=== PATIENT | female | born 1955 | race Caucasian/White ===

== ENCOUNTER → 2017-02-17 | Outpatient (CLI) | payer BC ==
--- NOTE | 2017-02-19 07:15 | MM ---
Reason for exam: screening (asymptomatic). Last mammogram was performed 1 year and 2 months ago. History: Patient is postmenopausal and has history of breast cancer at age 47. Excisional biopsy of the left breast, 2002. Excisional biopsy of the right breast, 2002. Lumpectomy of the right breast. Took hormonal contraceptives for 6 years beginning at age 18. Took estrogen for 3 months beginning at age 47. Took tamoxifen for 4 years 7 months. Physical Findings: A clinical breast exam by your physician is recommended on an annual basis and results should be correlated with mammographic findings. MG 3D Screening Mammo W/Cad Bilateral CC and MLO view(s) were taken. Prior study comparison: December 07, 2015, bilateral MG screening mammo w CAD. August 03, 2014, bilateral MG diagnostic mammo w CAD [facility]. There are scattered fibroglandular densities. No significant changes when compared with prior studies. ASSESSMENT: Benign, BI-RAD 2 RECOMMENDATION: Follow-up diagnostic mammogram of both breasts in 1 year.
== END | disposition home or self-care (01) ==
LOC: RADMAMWWP 16:29
PROVIDERS: ATTEND Internal Medicine
DX: Z12.31 Encounter for screening mammogram for malignant neoplasm of breast (principal)
CPT/HCPCS: 77063; 77067

== ENCOUNTER → 2019-12-09 | Outpatient (CLI) | payer MEDICARE ==
--- NOTE | 2019-12-10 13:45 | MM ---
Reason for exam: screening (asymptomatic). Last mammogram was performed 1 year and 6 months ago. History: Patient is postmenopausal and has history of breast cancer at age 47. Excisional biopsy of the left breast, 2002. Excisional biopsy of the right breast, 2002. Lumpectomy of the right breast. Took hormonal contraceptives for 6 years beginning at age 18. Took estrogen for 3 months beginning at age 47. Took tamoxifen for 4 years 7 months. Physical Findings: A clinical breast exam by your physician is recommended on an annual basis and results should be correlated with mammographic findings. MG Screening Mammo w CAD Bilateral CC and MLO view(s) were taken. Prior study comparison: June 10, 2018, mammogram, performed at [facility]. February 17, 2017, bilateral MG 3d screening mammo w/cad. December 07, 2015, bilateral MG screening mammo w CAD. The breast tissue is heterogeneously dense. This may lower the sensitivity of mammography. Finding: There are typically benign round calcifications in the upper outer quadrant of the left breast. Asymmetric breast tissue right upper outer quadrant is stable. There is no discrete abnormality. ASSESSMENT: Benign, BI-RAD 2 RECOMMENDATION: Routine screening mammogram of both breasts in 1 year.
== END | disposition home or self-care (01) ==
LOC: RADMAMWWP 08:33
PROVIDERS: ATTEND Nurse Practitioner Women's Health
DX: Z12.31 Encounter for screening mammogram for malignant neoplasm of breast (principal); Z80.3 Family history of malignant neoplasm of breast
CPT/HCPCS: 77067

== ENCOUNTER 2021-01-05 08:49 | Day surgery (SDC) | payer MEDICARE ==
[2021-01-01 13:15] VITALS: BMI 26.6
[~2021-01-05 08:49] MED LIST: LACTATED RINGERS 1,000 ML IV SCH; LIDOCAINE 1% (10MG/ML) FOR IV START INTRADERMA PRN; Pre Op ABX Message 1 EACH MISC MISCELLANE ONE
[2021-01-05] MEDS ORDERED: ONDANSETRON 4 MG/2 ML VIAL ONE (09:17)
[2021-01-05] MEDS ORDERED: LACTATED RINGERS 1,000 ML IV ONE ×2 (09:18→11:35)
[2021-01-05] MEDS ORDERED: ONDANSETRON 4 MG/2 ML VIAL IVP ONE (09:34)
[2021-01-05] MEDS ORDERED: DEXAMETHASONE SOD PHOSPHATE 4 MG/ML 1 ML VIAL IVP ONE (09:34)
[2021-01-05] MEDS ORDERED: fentaNYL (PF) 50 MCG/ML 2 ML AMP IVP ONE (09:42)
[2021-01-05] MEDS ORDERED: MIDAZOLAM 2 MG/2 ML VIAL IVP ONE (09:43)
[2021-01-05] MEDS ORDERED: CLINDAMYCIN 600 MG in DEXTROSE 5% IN WATER 50 ML IVPB STA ×2 (10:06)
[2021-01-05] MEDS ORDERED: PHENYLEPHRINE-0.9% NACL SYG 1,000 MCG/10 ML SYRINGE ONE (10:12)
[2021-01-05] MEDS ORDERED: ePHEDrine 50 MG/ML 1 ML AMP ONE (10:12)
[2021-01-05] MEDS ORDERED: LIDOCAINE 1% INJ 10MG/ML (20 ML MDV) ONE (10:12)
[2021-01-05] MEDS ORDERED: PROPOFOL 10 MG/ML 20 ML VIAL IV ONE (10:12)
[2021-01-05] MEDS ORDERED: ROPIVACAINE 5 MG/ML 30 ML VIAL ONE (10:12)
[2021-01-05] MEDS ORDERED: fentaNYL (PF) 50 MCG/ML 2 ML AMP ONE (10:12)
[2021-01-05] MEDS ORDERED: SUCCINYLCHOLINE CHLORIDE 100 MG/5 ML SYR IV ONE (10:12)
[2021-01-05] MEDS ORDERED: MIDAZOLAM 2 MG/2 ML VIAL ONE (10:12)
[2021-01-05] MEDS ORDERED: ceFAZolin 1,000 MG in SODIUM CHLORIDE 0.9% 1,000 ML IRRIGATION ONE (10:40)
--- NOTE | 2021-01-05 12:00 | P.OP ---
Date of Procedure: 01/05/21 Preoperative Diagnosis: Hallux valgus right foot Postoperative Diagnosis: Same Procedure(s) Performed: Modified Lapidus bunionectomy right foot Implants: Lapiplasty plates and screws Anesthesia: EULOGIO Surgeon: Andrews Awad Estimated Blood Loss (ml): 3 Pathology: none sent Condition: stable Disposition: PACU Indications for Procedure: Painful recurrent bunion right foot Description of Procedure: Prior to the patient being brought to the operating room anesthesia administered a nerve block on the right lower extremity utilizing ultrasonic guidance and having the patient under mild sedation. Then the patient was brought into the operating room and placed on the table supine position. Timeout was taken to confirm correct patient identifiers, correct procedure, and correct site of surgery. When all staff in the room were in agreement with the timeout, the patient was induced and placed under general anesthesia. A well-padded tourniquet was placed on the right ankle and then the left foot was prepped and draped in the usual manner. The foot was exsanguinated with an Esmarch bandage and the tourniquet inflated to 250 mmHg. Attention was first directed over the medial aspect of the first metatarsal phalangeal joint, where a linear incision was made between the neurovascular structures. It was deepened down to the subcutaneous tissue careful to identify, avoid, and retract any neurovascular structures and cauterize any bleeding vessels. Dissection was continued down to the first metatarsal phalangeal joint capsule. 2 semi-elliptical converging incisions are made along the medial aspect of the first metatarsal phalangeal joint and then the interposing piece of capsule was removed. The capsule was reflected from its osseous attachments on the medial plantar aspects of the first metatarsal head. The sesamoid apparatus was distracted plantarly and then the lateral sesamoid collateral ligament was transected and a lateral capsulotomy performed. Attention was directed over the dorsal aspect of the foot where a 6 cm incision was made centered over the tarsometatarsal joint medial to the extensor hallucis longus tendon. The incision was deepened down to the saphenous tissue careful to identify, avoid, and retract any neurovascular structures and cauterize any bleeding vessels. Dissection was then continued down to the periosteum and capsule and the same area. An incision was made medial to the extensor hallucis longus tendon to these tissues. Subperiosteal dissection was performed to expose the first tarsometatarsal joint. An osteotome was inserted into the joint to free the soft tissue attachments. A wire was placed through the medial aspect of the base of the first metatarsal to act as a joystick for frontal plane correction of the deformity. A fulcrum/joint seeker was then placed into the first tarsometatarsal joint. A Small stab incision was made on the lateral side of second metatarsal and bluntly dissected along the second metatarsal. The intermetatarsal angle reduction clamp was then placed over the second metatarsal and then medially on the flare of the base of the first metatarsal. While simultaneously holding the frontal plane correction and position the re duction clamp was advanced to close the intermetatarsal angle. Fluoroscopic imaging was used to check the amount of correction. Once the frontal plane rotation as well as the transverse plane to 40 were fully corrected a guidepin was then placed through the reduction clamp to lock it in place. The cut guide was placed over the joint seeker and held in place with pins. Fluoroscopy was used to check the alignment to make sure there was enough bone resection. Once adequate a third pin was placed through the cut guide to lock it in place. A sagittal saw was then used to resect the articular surface of the base of first metatarsal and distal medial cuneiform. The locking pin for the cut guide was removed and then the cut guide was removed. Joint seeker was also removed at this time. The distraction device was placed over the pins and the joint opened to allow access for the cut portions of bone. The cut portions of bone were removed. And then the wound was explored for any remaining pieces of bone. Once fully clean that wound is irrigated thoroughly with antibiotic saline. Then a 2 mm drill bit was used to aggressively fenestrate the conjoining surfaces of the arthrodesis site. The pin through the angle reduction clamp was removed and the fulcrum reinserted at the lateral side of the base of the first metatarsal. Then the distractor was reversed and then was used to compressed the arthrodesis site while holding the great toe dorsiflexed. The compression was done until the arthrodesis site was fully compressed. Once fully compressed fluoroscopy was used to make sure that the correction was maintained at that there was indeed adequate bony contact at the arthrodesis site. Lateral view also show that there was no plantar angulation. Once that was satisfactory of threaded olive wire was placed from dorsal proximal to distal plantar for point of fixation. Then the medial plate was positioned over the arthrodesis site and under direct fluoroscopic visualization was adjusted until the placement was ideal then temporarily fixated. The 2 internal screws were placed first. Then the temporary fixation was removed and the most distal and proximal screws ins erted. Fluoroscopic imaging showed that the plate was properly positioned. Then the distractor and guidepins were removed and then the dorsal plate was positioned under fluoroscopy and adjusted into ideal alignment and then temporarily fixated. The 200 screws were then placed first and then the temporary fixation removed and the most distal and proximal screws inserted through the plate. The olive wire was then removed and fluoroscopic imaging was used to check the position of the plates and the overall correction of the deformity. Intermetatarsal angle was corrected, the sesamoids were properly aligned and there was good compression maintain at the arthrodesis site. All wounds were then thoroughly irrigated with antibiotic saline. The first metatarsal phalangeal joint capsule was closed with 0 Vicryl while holding the great toe to correct position. The deep tissue on the dorsal incision was also closed with 0 Vicryl. All incisions were closed with 4-0 Monocryl subcutaneously. The medial dorsal incisions were closed with 4-0 Stratafix in a running subcuticular manner. Dermal glue was applied to all incisions. Steri- Strips are placed across all incisions. An Arthrex jumpstart dressing was placed over all incisions. Then a bulky dry dressing applied to the left foot. Tourniquet was released and capillary refill return to all digits on the right foot. Then the patient was placed in a well-padded, well molded plaster posterior mold/sugar tong splint. Ankle was held in neutral position until the splint was dried. Then anesthesia was reversed and the patient was taken recovery with vital signs stable.
[2021-01-05 12:18] VITALS: TEMP 96.8
[2021-01-05 13:30] VITALS: BP 117/77; PULSE 80; RESP 16
--- NOTE | 2021-01-05 15:52 | P.ANPRN ---
Procedure Note - Anesthesia - Nerve Block Performed Right Popliteal Single Time Out Performed: Yes (941) Date of Procedure: 01/05/21 Procedure Start Time: 09:42 Procedure Stop Time: 09:47 Location of Patient: PreOp Indication: Acute Post-Operative Pain, Requested by Surgeon Specifically requested for management of pain by DrLeigh Ann: Andrews Awad Sedation Type: Sedate with meaningful contact maintained Preparation: Sterile Prep Position: Supine Catheter: None Needle Types: Pajunk Needle Gauge: 21 Ultrasound used to visualize needle placement: Yes Ultrasound used to observe medication spread: Yes Injectate: 0.5% Ropivacaine (see comment for volume) (15cc + 5cc nacl pf) Blood Aspirated: No Pain Paresthesia on Injection Noted: No Resistance on Injection: Normal Image Stored and Saved: Yes Events: Uneventful and Well Tolerated Right Adductor Canal Single Time Out Performed: Yes (941) Date of Procedure: 01/05/21 Procedure Start Time: 09:48 Procedure Stop Time: 09:52 Location of Patient: PreOp Indication: Acute Post-Operative Pain, Requested by Surgeon Specifically requested for management of pain by Dr.: Andrews Awad Sedation Type: Sedate with meaningful contact maintained Preparation: Sterile Prep Position: Supine Catheter: None Needle Types: Pajunk Needle Gauge: 21 Ultrasound used to visualize needle placement: Yes Ultrasound used to observe medication spread: Yes Injectate: 0.5% Ropivacaine (see comment for volume) (15cc + 5cc nacl pf) Blood Aspirated: No Pain Paresthesia on Injection Noted: No Resistance on Injection: Normal Image Stored and Saved: Yes Events: Uneventful and Well Tolerated
== END 2021-01-05 13:50 | disposition home or self-care (01) ==
LOC: OR 08:49
PROVIDERS: ATTEND Podiatrist
DX: M20.11 Hallux valgus (acquired), right foot (principal); I10 Essential (primary) hypertension; K21.9 Gastro-esophageal reflux disease without esophagitis; G43.909 Migraine, unspecified, not intractable, without status migrainosus; Z85.3 Personal history of malignant neoplasm of breast; Z97.3 Presence of spectacles and contact lenses; Z98.890 Other specified postprocedural states; Z98.1 Arthrodesis status; Z83.3 Family history of diabetes mellitus; Z82.49 Family history of ischemic heart disease and other diseases of the circulatory system; Z87.891 Personal history of nicotine dependence; Z79.1 Long term (current) use of non-steroidal anti-inflammatories (NSAID); Z79.899 Other long term (current) drug therapy; Z88.1 Allergy status to other antibiotic agents
CPT/HCPCS: 64447; 64445; 76942; 28297; C1713; J2250; J1100; J2405; J2001; J3010; J2795; J2370; J0330; J2704; 64450

== ENCOUNTER → 2021-02-09 | Outpatient (CLI) | payer MEDICARE ==
--- NOTE | 2021-02-12 10:03 | MM ---
Reason for exam: screening (asymptomatic). Last mammogram was performed 1 year and 2 months ago. History: Patient is postmenopausal and has history of breast cancer at age 47. Excisional biopsy of the left breast, 2002. Excisional biopsy of the right breast, 2002. Lumpectomy of the right breast. Took hormonal contraceptives for 6 years beginning at age 18. Took estrogen for 3 months beginning at age 47. Took tamoxifen for 4 years 7 months. Physical Findings: A clinical breast exam by your physician is recommended on an annual basis and results should be correlated with mammographic findings. MG 3D Screening Mammo W/Cad Bilateral CC and MLO view(s) were taken. Prior study comparison: December 09, 2019, bilateral MG screening mammo w CAD. June 10, 2018, mammogram, performed at [facility]. There are scattered fibroglandular densities. There are benign appearing vascular calcifications bilaterally. There is chronic nodularity in the left breast. There is no discrete abnormality. ASSESSMENT: Benign, BI-RAD 2 RECOMMENDATION: Routine screening mammogram of both breasts in 1 year.
== END | disposition home or self-care (01) ==
LOC: RADMAMWWP 10:43
PROVIDERS: ATTEND Family Medicine
DX: Z12.31 Encounter for screening mammogram for malignant neoplasm of breast (principal); Z78.0 Asymptomatic menopausal state
CPT/HCPCS: 77063; 77067

== ENCOUNTER → 2022-03-12 | Outpatient (CLI) | payer MEDICARE ==
--- NOTE | 2022-03-13 08:26 | MM ---
Reason for Exam: Screening (asymptomatic). Last mammogram was performed 1 year(s) and 1 month(s) ago. Patient History: Menarche at age 10. First Full-Term at age 16. Postmenopausal. Breast cancer, age 47. Estrogen for 3 months from age 47 until age 47. Hormonal Contraceptives, starting at age 18 for 6 years. Tamoxifen for 4 years, 7 months, until age 53. Lumpectomy on the Right side. 2002, Excisional Biopsy on the Right side. 2002, Excisional Biopsy on the Left side. Prior Study Comparison: 04/16/1993 Screening Mammogram, Unknown. 06/10/2018 Screening Mammogram, [facility]. 12/09/2019 Bilateral Screening Mammogram, [facility]. 02/09/2021 Bilateral Screening Mammogram, [facility]. Tissue Density: The breast tissue is heterogeneously dense. This may lower the sensitivity of mammography. Findings: Analyzed By CAD. There is no suspicious group of microcalcifications or new suspicious mass in either breast. Distortion right breast from prior surgical procedure. Overall Assessment: Benign, BI-RAD 2 Management: Screening Mammogram of both breasts in 1 year. A clinical breast exam by your physician is recommended on an annual basis and results should be correlated with mammographic findings. Electronically signed and approved by: Justen Waters M.D. Radiologis
== END | disposition home or self-care (01) ==
LOC: RADMAMWWP 09:32
PROVIDERS: ATTEND Family Medicine
DX: Z12.31 Encounter for screening mammogram for malignant neoplasm of breast (principal); Z78.0 Asymptomatic menopausal state
CPT/HCPCS: 77063; 77067

== ENCOUNTER → 2022-08-15 | Outpatient (CLI) | payer MEDICARE ==
--- NOTE | 2022-08-15 11:54 | MR ---
EXAMINATION TYPE: MR lumbar spine wo con DATE OF EXAM: 08/15/2022 COMPARISON: None HISTORY: Pain low back into left side TECHNIQUE: Multiplanar, multisequence images of the lumbar spine were acquired without IV contrast. FINDINGS: Lumbar segments are intact. Grade 1 anterolisthesis of L4-L5 without evidence for pars defects. No p araspinal masses are identified. Conus medullaris has a normal appearance. Multilevel disc desiccati on. Disc space narrowing most pronounced at L5-S1. Sacral Tarlov cyst. Type I Modic changes involving the inferior endplate of L5 and superior endplate of S1. T12-L1: No evidence for disc herniation. Bilateral facet arthropathy and ligamentum flavum buckling. No significant central canal stenosis. Bilateral neural foramina are patent. L1-L2: No evidence for disc herniation. Bilateral facet arthropathy and ligamentum flavum buckling. N o significant central canal stenosis. Bilateral neural foramina are patent. L2-L3: No evidence for disc herniation. Bilateral facet arthropathy and ligamentum flavum buckling. N o significant central canal stenosis. Bilateral neural foramina are patent. L3-L4: Broad-based disc bulge without significant central canal stenosis. Bilateral facet arthropathy and ligamentum little buckling. The neural foramina are patent bilaterally. L4-L5: Grade 1 anterolisthesis with uncovering of the disc. Disc space narrowing. Central disc protru jefferson mild central canal stenosis. Bilateral facet arthropathy with ligamentum flavum buckling. The le ft neural foramen is patent. Mild right neuroforaminal stenosis L5-S1: Broad-based disc bulge without evidence of significant central canal stenosis. Bilateral facet arthropathy with mild left neural foraminal stenosis. The right neural foramen is patent. Partial visualization of large right superior renal pole T2 hyperintense likely cyst measuring at mic[address]al st 6.7 cm. This can be further evaluated with renal ultrasound as clinically indicated. IMPRESSION: 1. Grade 1 anterolisthesis of L4 on L5 with uncovering the disc. There is a central disc protrusion a t this level with bilateral facet arthropathy and ligamentum flavum buckling contributing to mild iris tral canal stenosis. Mild right neural foraminal stenosis at this level. 2. Multilevel degenerative disc disease and facet arthropathy as described above.
== END | disposition home or self-care (01) ==
LOC: RADMRIMAIN 10:17
PROVIDERS: ATTEND Physical Medicine & Rehabilitation
DX: M51.16 Intervertebral disc disorders with radiculopathy, lumbar region (principal); M43.16 Spondylolisthesis, lumbar region; M41.26 Other idiopathic scoliosis, lumbar region; M48.061 Spinal stenosis, lumbar region without neurogenic claudication; M47.26 Other spondylosis with radiculopathy, lumbar region; M16.0 Bilateral primary osteoarthritis of hip; R20.2 Paresthesia of skin; Z85.3 Personal history of malignant neoplasm of breast
CPT/HCPCS: 72148

== ENCOUNTER → 2022-10-16 | Outpatient (CLI) | payer MEDICARE ==
--- NOTE | 2022-10-16 15:56 | US ---
EXAMINATION TYPE: US renals and bladder DATE OF EXAM: 10/16/2022 COMPARISON: MRI 2022 CLINICAL INDICATION: Female, 67 years old with history of N28.1 CYST OF KIDNEY, ACQUIRED; Right renal cyst seen on recent MRI EXAM MEASUREMENTS: Right Kidney: 10.1 x 5.5 x 4.5 cm Left Kidney: 9.9 x 5.2 x 4.7 cm Right Kidney: 6.5 x 5.7 x 5.9cm complex cyst superior pole Left Kidney: wnl Bladder: wnl Bilateral Jets seen: no There is no evidence for hydronephrosis at this point in time. No nephrolithiasis is seen. No gerry s are identified. The urinary bladder is anechoic. IMPRESSION: 1. Complex cyst with internal echoes superior pole right kidney. Follow-up recommended.
== END | disposition home or self-care (01) ==
LOC: RADUSWWP 15:18
PROVIDERS: ATTEND Family Medicine
DX: N28.1 Cyst of kidney, acquired (principal)
CPT/HCPCS: 76770

== ENCOUNTER → 2023-01-31 | Outpatient (CLI) | payer MEDICARE ==
[2023-01-31 16:17] LABS: BUN/Creat Ratio 17.58 Ratio (12.00-20.00); Blood Urea Nitrogen 21.1 mg/dL (9.0-27.0); Calcium 9.7 mg/dL (8.7-10.3); Carbon Dioxide 20.7 mmol/L (21.6-31.8); Chloride 109 mmol/L (96-109); Glucose 94 mg/dL (70-110); Sodium 142 mmol/L (135-145)
== END | disposition home or self-care (01) ==
LOC: LABWHC1 08:04
PROVIDERS: ATTEND Internal Medicine
DX: N18.31 Chronic kidney disease, stage 3a (principal)
CPT/HCPCS: 36415; 80048

== ENCOUNTER → 2023-03-10 | Outpatient (CLI) | payer MEDICARE ==
[2023-03-10 15:12] LABS: African American GFR (CKD) 64 (>60 ml/min/1.73 sqM); Blood Urea Nitrogen 23 mg/dL (7-17); Non-African American GFR(CKD) 55 (>60 ml/min/1.73 sqM)
--- NOTE | 2023-03-10 17:06 | CT ---
EXAMINATION TYPE: CT abdomen pelvis wo/w con DATE OF EXAM: 03/10/2023 COMPARISON: Ultrasound 10/16/2022 HISTORY: Right renal cyst found on prior MRI CT DLP: 1267.3 mGycm CONTRAST: CT scan of the abdomen and pelvis is performed with Oral Contrast and without and with IV Contrast, p atient injected with 80 cc mL of Isovue 300. FINDINGS: LUNG BASES-: No visible nodule. No infiltrate. Small hiatal hernia seen. LIVER/GB: Cholecystectomy clips. No space occupying hepatic lesion. Biliary tree is of normal caliber . PANCREAS: No inflammation. No distinct mass. SPLEEN: No splenic enlargement. No lesion seen. ADRENALS: No nodule. No thickening. KIDNEYS/BLADDER: No hydronephrosis. No nephrolithiasis. Simple exophytic cyst upper pole right kidn ey measuring 7.2 cm. The remainder of the kidneys are free of solid or cystic mass. Urinary bladder g rossly unremarkable. BOWEL: Normal appendix. Normal bowel caliber. No inflammation. GENITAL ORGANS: No gross abnormality. LYMPH NODES: No greater than 1cm abdominal or pelvic lymph nodes are appreciated. AORTA: No significant abnormality. OSSEOUS STRUCTURES: No significant abnormality is seen. OTHER: No significant additional abnormality is seen. IMPRESSION: 1. Simple cyst upper pole right kidney.
== END | disposition home or self-care (01) ==
LOC: RADCTMAIN 14:32
PROVIDERS: ATTEND Student in an Organized Health Care Education/Training Program
DX: N28.1 Cyst of kidney, acquired (principal)
CPT/HCPCS: 82565; 84520; 74178; 36415; Q9967

== ENCOUNTER → 2023-03-25 | Outpatient (CLI) | payer MEDICARE ==
--- NOTE | 2023-03-25 16:03 | BD ---
EXAMINATION TYPE: Axial Bone Density DATE OF EXAM: 03/25/2023 CLINICAL HISTORY: 67 years old Female. ICD-10 CODE: Z78.0 ASYMPTOMATIC MENOPAUSAL STATE Height: 64 Weight: 165 FRAX RISK QUESTIONS: Family History (Parent hip fracture): no History of Fracture in Adulthood: no Secondary Osteoporosis: no RISK FACTORS HISTORY OF: Surgery to Spine/Hip(right/left)/Wrist (right/left): no MEDICATIONS: Thyroid Medications: no Osteoporosis Medications: no EXAM MEASUREMENTS: Bone mineral densitometry was performed using the [employer]. Bone mineral density as measured about the Lumbar spine is: ----- L1-L4(G/cm2): 1.072 T Score Values are as follows: ----- L1: -1.8 ----- L2: -1.2 ----- L3: -0.6 ----- L4: -0.4 ----- L1-L4: -0.9 Z Score Values are as follows: ----- L1: -0.3 ----- L2: 0.3 ----- L3: 0.9 ----- L4: 1.1 ----- L1-L4: 0.6 Bone mineral density has: Decreased -0.9% since study of: 01-23-2009 Bone mineral density about the R hip (g/cm2): 0.915 Bone mineral density about the L hip (g/cm2): 0.940 T Score values are as follows: -----R Neck: -0.5 -----L Neck: -0.1 -----R Total: -0.7 -----L Total: -0.5 Z Score values are as follows: -----R Neck: 1.1 -----L Neck: 1.5 -----R Total: 0.6 -----L Total: 0.8 Bone mineral density has: Decreased -3.4% since study of: 01-23-2009 FRAX%s: The graph provided illustrates a 7.8% chance for a major osteoporotic fx and a 0.6% chance fo r the hips probability for fx in 10 years time. IMPRESSION: Normal (Values between +1 and -1 indicate normal bone mass). Note that measurements are bordering on osteopenia in the lumbar spine. Consider repeating this study in 5 years or sooner if there is some new clinical indication. NOTE: T-SCORE=SD OF THE YOUNG ADULT MEAN.
--- NOTE | 2023-03-26 21:44 | MM ---
Reason for Exam: Screening (asymptomatic). Last mammogram was performed 1 year(s) and 1 month(s) ago. Patient History: Menarche at age 10. First Full-Term at age 16. Postmenopausal. Breast cancer, right, age 47. Estrogen for 3 months from age 47 until age 47. Hormonal Contraceptives, starting at age 18 for 6 years. Tamoxifen for 4 years, 7 months, until age 53. Lumpectomy on the Right side. 2002, Excisional Biopsy on the Right side. 2002, Excisional Biopsy on the Left side. Prior Study Comparison: 12/09/2019 Bilateral Screening Mammogram, [facility]. 02/09/2021 Bilateral Screening Mammogram, [facility]. 03/12/2022 Bilateral MG 3D screening mammo w/cad, [facility]. Tissue Density: There are scattered fibroglandular densities. Findings: Analyzed By CAD. Redemonstrated postsurgical changes right breast. There is no suspicious group of microcalcifications or new suspicious mass in either breast. Overall Assessment: Benign, BI-RAD 2 Management: Screening Mammogram of both breasts in 1 year. . Patient should continue monthly self-breast exams. A clinical breast exam by your physician is recommended on an annual basis. This exam should not preclude additional follow-up of suspicious palpable abnormalities. Note on Mirella scores and lifetime risk: 1. A Mirella score greater than 3% is considered moderate risk. If this is the case, consider specialist referral to assess eligibility for a risk reducing agent. 2. If overall lifetime risk for the development of breast cancer is 20% or higher, the patient may qualify for future screening with alternating mammogram and breast MRI. Electronically signed and approved by: Nate Valdez M.D. Radiologist
== END | disposition home or self-care (01) ==
LOC: RADMAMWWP 09:58
PROVIDERS: ATTEND Family Medicine
DX: Z12.31 Encounter for screening mammogram for malignant neoplasm of breast (principal); M85.88 Other specified disorders of bone density and structure, other site; Z78.0 Asymptomatic menopausal state
CPT/HCPCS: 77063; 77067; 77080

== ENCOUNTER → 2023-05-13 | Outpatient (CLI) | payer MEDICARE ==
[2023-05-13 15:58] LABS: HCT 44.3 % (37.2-46.3); MCH 28.9 pg (27.0-32.0); MCHC 31.6 g/dL (32.0-37.0); MCV 91.3 FL (80.0-97.0); Mean Platelet Volume 9.7 FL (9.5-12.2); NRBC Per 100 WBC 0 X 10*3/uL (0.00-0.01); Platelet Count 313 X 10*3/uL (140-440); RBC 4.85 X 10*6/uL (4.10-5.20); RDW 13.9 % (11.5-14.5); WBC 6.86 X 10*3/uL (4.50-10.00)
[2023-05-13 16:48] LABS: % Iron Saturation 19.27 (12.00-45.00); ALT 34 U/L (8-44); AST 27 U/L (13-35); Albumin 4.4 g/dL (3.8-4.9); Albumin/Globulin Ratio 1.63 Ratio (1.60-3.17); Alkaline Phosphatase 123 U/L (41-126); BUN/Creat Ratio 25.55 Ratio (12.00-20.00); Blood Urea Nitrogen 28.1 mg/dL (9.0-27.0); Calcium 10.1 mg/dL (8.7-10.3); Carbon Dioxide 22.6 mmol/L (21.6-31.8); Chloride 106 mmol/L (96-109); Ferritin 52.8 ng/mL (10.0-291.0); Globulin 2.7 g/dL (1.6-3.3); Glucose 86 mg/dL (70-110); Iron 79 UG/DL (50-170); Phosphorus 3.8 mg/dL (2.4-5.1); Sodium 142 mmol/L (135-145); Total Bilirubin <0.2 mg/dL (0.3-1.2); Total Iron Binding Capacity 410 UG/DL (228-460); Total Protein 7.1 g/dL (6.2-8.2); Uric Acid 6.9 mg/dL (2.9-7.7)
[2023-05-13 20:11] LABS: Appearance,Urine Clear (Clear); Bilirubin,Urine Negative (Negative); Blood,Urine Negative (Negative); Color,Urine Yellow (Yellow); Ketones,Urine Negative (Negative); Nitrite,Urine Negative (Negative); Specific Gravity,Urine 1.028 (1.001-1.030); Urobilinogen,Urine 0.2 E.U./DL
[2023-05-13 21:01] LABS: Bacteria,Urine None Seen (None Seen); Calcium Oxalate Crystals,Urine Present (None Seen)
== END | disposition home or self-care (01) ==
LOC: LABWHC1 08:47
PROVIDERS: ATTEND Internal Medicine
DX: N18.31 Chronic kidney disease, stage 3a (principal); D63.1 Anemia in chronic kidney disease; N39.0 Urinary tract infection, site not specified; N25.81 Secondary hyperparathyroidism of renal origin; E55.9 Vitamin D deficiency, unspecified; M10.9 Gout, unspecified
CPT/HCPCS: 36415; 80053; 81001; 82306; 82728; 83540; 83550; 83735; 83883; 83970; 84100; 84166; 84550; 85027; 86334

== ENCOUNTER → 2023-06-23 | Outpatient (CLI) | payer MEDICARE ==
[2023-06-23 11:43] LABS: INR 0.9 (<1.2); Partial Thromboplastin Time 24.4 sec (22.0-30.0); Prothrombin Time 10.1 sec (10.0-12.5)
[2023-06-23 14:46] LABS: Basophils # (A) 0.05 X 10*3/uL (0.00-0.10); Basophils % (A) 0.7 %; Eosinophils # (A) 0.25 X 10*3/uL (0.04-0.35); Eosinophils % (A) 3.5 %; HGB 14.2 g/dL (12.0-15.0); Lymphocytes # (A) 1.88 X 10*3/uL (0.90-5.00); Lymphocytes % (A) 26.6 %; MCH 29.3 pg (27.0-32.0); MCHC 32.3 g/dL (32.0-37.0); MCV 90.9 FL (80.0-97.0); Mean Platelet Volume 10.3 FL (9.5-12.2); Monocytes % (A) 7.1 %; NRBC Per 100 WBC 0 X 10*3/uL (0.00-0.01); Neutrophils # (A) 4.38 X 10*3/uL (1.80-7.70); Neutrophils % (A) 61.8 %; Platelet Count 316 X 10*3/uL (140-440); RBC 4.84 X 10*6/uL (4.10-5.20); RDW 13.2 % (11.5-14.5); WBC 7.08 X 10*3/uL (4.50-10.00)
[2023-06-23 15:00] LABS: ALT 28 U/L (8-44); AST 25 U/L (13-35); Albumin 4.6 g/dL (3.8-4.9); Albumin/Globulin Ratio 1.77 Ratio (1.60-3.17); Alkaline Phosphatase 106 U/L (41-126); BUN/Creat Ratio 20.27 Ratio (12.00-20.00); Blood Urea Nitrogen 22.3 mg/dL (9.0-27.0); Calcium 9.7 mg/dL (8.7-10.3); Chloride 108 mmol/L (96-109); Globulin 2.6 g/dL (1.6-3.3); Glucose 93 mg/dL (70-110); Potassium 3.7 mmol/L (3.5-5.5); Sodium 142 mmol/L (135-145); Total Bilirubin 0.2 mg/dL (0.3-1.2); Total Protein 7.2 g/dL (6.2-8.2)
== END | disposition home or self-care (01) ==
LOC: LABPAT 10:06
PROVIDERS: ATTEND Orthopaedic Surgery
DX: Z01.812 Encounter for preprocedural laboratory examination (principal); E11.9 Type 2 diabetes mellitus without complications; M16.11 Unilateral primary osteoarthritis, right hip; Z22.322 Carrier or suspected carrier of Methicillin resistant Staphylococcus aureus
CPT/HCPCS: 36415; 80053; 83036; 85025; 85610; 85730; 86850; 86900; 86901; 87070

== ENCOUNTER 2023-07-02 11:20 | Day surgery (SDC) | payer MEDICARE ==
[~2023-07-02 11:20] MED LIST changes: +HYDROmorphone 0.5 MG/0.5 ML SYRINGE IVP PRN; -LACTATED RINGERS 1,000 ML IV SCH; -LIDOCAINE 1% (10MG/ML) FOR IV START INTRADERMA PRN; -Pre Op ABX Message 1 EACH MISC MISCELLANE ONE; +TRANEXAMIC 1,000 MG/100ML-NACL 1,000 MG in SALINE 1 100ML.BAG IV PRN; +TRANEXAMIC 1,000 MG/100ML-NACL 1,000 MG in SALINE 1 100ML.BAG IVPB PRN
[2023-07-02] MEDS: oxyCODONE ER 10 MG TAB.ER.12H PO PRN (12:05)
[2023-07-02] MEDS: DOCUSATE 100 MG CAP PO PRN (12:05)
[2023-07-02] MEDS: LIDOCAINE 1% (10MG/ML) FOR IV START INTRADERMA PRN (12:10)
[2023-07-02] MEDS: LACTATED RINGERS 1,000 ML IV SCH ×3 (12:10→19:51)
[2023-07-02] MEDS: MIDAZOLAM 2 MG/2 ML VIAL IVP ONE (12:20)
[2023-07-02] MEDS: DEXAMETHASONE SOD PHOSPHATE 10 MG/ML 1 ML VIAL IV PRN (12:25)
[2023-07-02] MEDS: FAMOTIDINE 20 MG/2 ML VIAL IVP PRN (12:25)
[2023-07-02] MEDS: KETOROLAC 15 MG/ML 1 ML VIAL IVP PRN (12:25)
[2023-07-02] MEDS: ONDANSETRON 4 MG/2 ML VIAL IVP PRN (12:25)
--- NOTE | 2023-07-02 12:36 | P.ANPRN ---
Procedure Note - Anesthesia - Nerve Block Performed Right Eder Single Time Out Performed: Yes Date of Procedure: 07/02/23 Procedure Start Time: 12:10 Procedure Stop Time: 12:15 Location of Patient: PreOp Indication: Acute Post-Operative Pain, Analgesia, Requested by Surgeon Sedation Type: Sedate with meaningful contact maintained Preparation: Sterile Prep Position: Supine Catheter: None Needle Types: Pajunk Needle Gauge: 21 Ultrasound used to visualize needle placement: Yes Ultrasound used to observe medication spread: Yes Injectate: 0.5% Ropivacaine (see comment for volume) (Ropiv 20 ml + decadron 4mg) Blood Aspirated: No Pain Paresthesia on Injection Noted: No Resistance on Injection: Normal Image Stored and Saved: Yes Events: Uneventful and Well Tolerated
[2023-07-02] MEDS: ACETAMINOPHEN TAB 500 MG TAB PO PRN (12:42)
[2023-07-02] MEDS ORDERED: SUCCINYLCHOLINE CHLORIDE 200 MG/10 ML VIAL IV ONE (13:43)
[2023-07-02] MEDS ORDERED: LIDOCAINE 1% INJ 10MG/ML (20 ML MDV) ONE (13:43)
[2023-07-02] MEDS ORDERED: PROPOFOL 10 MG/ML 20 ML VIAL IV ONE (13:43)
[2023-07-02] MEDS ORDERED: PHENYLEPHRINE-0.9% NACL SYG 1,000 MCG/10 ML SYRINGE ONE (13:43)
[2023-07-02] MEDS ORDERED: KETAMINE HCL IN 0.9 % NACL 50 MG/5 ML SYRINGE ONE (13:43)
[2023-07-02] MEDS ORDERED: HYDROmorphone (PF) 1 MG/ML ONE (13:43)
[2023-07-02] MEDS ORDERED: ROPIVACAINE 5 MG/ML 30 ML VIAL ONE (13:43)
[2023-07-02] MEDS ORDERED: TRANEXAMIC 1,000 MG/100ML-NACL PREMIX BAG ONE (13:43)
[2023-07-02] MEDS ORDERED: GLYCOPYRROLATE 0.2 MG/ML 2 ML VIAL ONE (13:43)
[2023-07-02] MEDS ORDERED: DEXAMETHASONE SOD PHOSPHATE 4 MG/ML 1 ML VIAL ONE (13:43)
[2023-07-02] MEDS ORDERED: fentaNYL (PF) 50 MCG/ML 2 ML AMP ONE (13:43)
[2023-07-02] MEDS ORDERED: ROCURONIUM 10 MG/ML (5 ML VIAL) IV ONE (13:43)
[2023-07-02] MEDS ORDERED: NEOSTIGMINE 1 MG/ML 10 ML VIAL ONE (13:43)
[2023-07-02] MEDS: ROPIVACAINE/EPI/CLONIDINE/KET 50 ML SYRINGE MISCELLANE PRN (14:41)
--- NOTE | 2023-07-02 15:52 | FL ---
EXAMINATION TYPE: FL guidance operating room, XR Hip Limited RT Intraoperative/procedural fluoroscopi c services were provided. Total fluoroscopy time is 47 seconds with a total of 7 submitted images to PACS. Please see the operative/procedural note for further details. DAP: 2.0896 Gycm2
[2023-07-02] MEDS ORDERED: HYDROcodone/APAP 5-325MG 1 EACH TAB PO PRN (15:55)
[2023-07-02] MEDS ORDERED: ONDANSETRON 4 MG/2 ML VIAL IVP PRN (15:55)
[2023-07-02] MEDS ORDERED: ACETAMINOPHEN TAB 325 MG TAB PO PRN (15:55)
[2023-07-02] MEDS ORDERED: HYDROmorphone 0.5 MG/0.5 ML SYRINGE IVP PRN ×3 (15:55)
[2023-07-02] MEDS ORDERED: traMADol 50 MG TAB PO PRN (15:55)
[2023-07-02] MEDS ORDERED: MAGNESIUM HYDROXIDE 2,400 MG/30 ML CUP PO PRN (15:55)
[2023-07-02] MEDS ORDERED: NALOXONE 0.4 MG/ML 1 ML VIAL IV PRN (15:55)
--- NOTE | 2023-07-02 16:02 | P.OP ---
Date of Procedure: 07/02/23 Preoperative Diagnosis: severe right hip osteoarthritis Postoperative Diagnosis: same Procedure(s) Performed: right direct anterior total hip arthroplasty Implants: 1. [place] Trident II Acetabular Cup, Size #50 2. Rolanda Insignia Size #4 Femoral Stem, High Offset 3. Biolox delta femoral head, 36 mm, -5 neck Anesthesia: jaycee KRISHNAN Surgeon: Andrei Mauricio Utility Operator #1: Av Shah Estimated Blood Loss (ml): 200 IV fluids (ml): 1,000 Pathology: none sent Condition: stable Disposition: PACU Indications for Procedure: I had a long discussion with the patient in the office on the potential risks and complications of an elective total hip replacement through a direct anterior approach. Risks discussed include, but are certainly not limited to, risks from anesthesia, superficial infection requiring local wound care or antibiotics, deep rosalia-prosthetic joint infection and the treatment required to eradicate infection, intraoperative fracture, postoperative periprosthetic fracture, damage to local blood vessels or nerves particularly the lateral femoral cutaneous nerve, delayed wound healing requiring local wound care or possibly surgical debridement, hip dislocation, leg length discrepancy, soft tissue irritation around the total hip implant such as iliopsoas tendinitis or trochanteric bursitis, wear and osteolysis from the implants, squeaking or audible noises, groin pain, thigh pain, heterotopic ossification, stiffness, aseptic loosening of the implants, dissatisfaction with surgical outcome, need for revision surgery, DVT, PE, swelling of the operative extremity, acute coronary event, stroke, failure to thrive, and possibly loss of life or limb. The patient understands that while these are the most common complications after an elective hip replacement there are certainly other less common complications possible. They were given ample time to ask questions regarding the potential complications of a hip replacement. Following our discussion the patient pro vided their verbal and written consent to go forward with an elective total hip replacement. Operative Findings: severe right hip osteoarthritis Description of Procedure: The patient was identified in the preoperative holding area and the correct hip was marked with my initials. I reviewed the procedure and consent with the patient. All of their questions were answered. The patient was then brought back into the operating room by anesthesia. While on the [facility] anesthesia was administered by the anesthesia team. Preoperative antibiotics and tranexamic acid were also given. After the patient was under anesthesia I examined their ankles to determine their preoperative leg length discrepancy. The skin over the anterior aspect of the hip was shaved to remove hair over the site of planned incision. Both feet and ankles were padded with webril and boots for the [place] were applied. The patient was then carefully transferred onto the [place] table. A perineal post was immediately placed. The arms were placed on arm holders and were well-padded. Both boots were secured to the spars on the [place] table. The patient was positioned so that the pelvis was centered over the post. Nonsterile drapes were applied. A timeout was performed identifying the correct patient, operative extremity, and procedure. At this point fluoroscopy was brought in to take preoperative images of the pelvis and operative hip. Using the standing AP pelvis from the office as a template, a comparable image was obtained with fluoroscopy. A metallic bar was used to create a bi-ischial line for use as a reference to leg length adjustments during the procedure. Global offset was also measured on both the operative and nonoperative leg. Fluoroscopy was then brought out and a pre-scrub using a chlorhexidine scrub brush was performed. The operative limb was then prepped and draped in the standard sterile fashion. An anterior longitudinal incision was made lateral and distal to the ASIS. The skin and subcutaneous tissues were incised sharply. The underlying tensor fascia was identified and incised in its midportion. The fascia was dissected free from the underlying muscle and the muscle belly was retracted. A blunt tipped cobra retractor was placed over the superior neck under the muscle fibers of the gluteus minimus. The deep enveloping fascia of the tensor was incised. The anterior leash of vessels were then identified and cauterized. The fascia between the rectus and the capsule was then incised and the pre-capsular fat was excised. A second Cobra was placed inferior to the neck. The interval between the rectus and iliocapsularis and the hip capsule was developed and a retractor was placed carefully over the anterior rim of the acetabulum. A T-shaped anterior capsulotomy was performed. The superior capsular leaflet was left in place in the inferior capsular flap was excised. The Cobra retractors were placed intracapsularly. We then made a femoral neck osteotomy according to preoperative and intraoperative templating and confirmed the level of the osteotomy using fluoroscopic imaging. The femoral head was removed, passed off to the back table, and sized. The superior capsular flap was excised. Retractors were placed circumferentially exposing the acetabulum. We then circumferentially debrided the acetabulum free of labrum and osteophytes. The pulvinar was removed to fully visualize the cotyloid fossa. We then sequentially reamed to achieve peripheral fit and excellent bleeding subchondral bone. The socket was thoroughly irrigated. The acetabular component was impacted into the appropriate position using fluoroscopy to guide version, inclination, and depth of insertion taking care to have a comparable image of the AP pelvis to the standing image taken in the office. An excellent press-fit was achieved and final position was confirmed using fluoroscopy. The press fit was augmented with bony cancellus dome screws. The liner was then impacted into the socket. Attention was then turned to the femur. The remnant dorsal lateral capsule was excised. The short external rotators were visible and protected. A bone hook was used to confirm appropriate translation of the trochanter away from the acetabulum. The leg was then extended and adducted and the bone hook was used to elevate the femur for broaching. A box osteotome and blunt tipped canal sound was then utilized to gain access to the femoral canal. We then sequentially broached the femur in appropriate anteversion until excellent torsional stability was achieved. The neck cut was brought flush to the trial broach with a calcar planar. A trial neck and head were then placed onto the broach and the hip was atraumatically reduced under direct visualization. External rotation to 90 was performed to assess stability. Fluoroscopy was brought in. An AP and lateral fluoroscopic image of the proximal femur was obta ined to assess position and fill of the trial broach. An AP of the pelvis was then obtained and matched to the preoperative image taken. A bi-ischial bar was then placed and measurements were taken to assess changes in length and offset. The hip was then carefully dislocated, the proximal femur was exposed, and the trial implants were removed. The wound and proximal femur was thoroughly irrigated using sterile saline and pulsatile lavage. The final femoral implant was dispensed and gently tapped into place generating an excellent press-fit. The trunnion was cleansed and the final head was tapped into place to engage the [place] taper. The acetabulum was irrigated and visualized to be free of debris. The hip was carefully reduced. Stability was checked clinically with external rotation to 90 and there was no evidence of instability. Final fluoroscopic images were taken. The wound was then thoroughly irrigated and soaked with a dilute Betadine rinse for 3 minutes. 3 L of sterile saline was irrigated through the wound using pulsatile lavage. Local anesthetic cocktail was injected into the soft tissues around the surgical field. The wound was then closed in layers. A sterile dressing was placed over the surgical incision. The drapes were taken down and the patient was carefully transferred off of the [place] table. Following removal of the boots the leg lengths felt acceptable. The patient was then taken to recovery room having tolerated the procedure well. Av Shah PA-C was required as a skilled certified physician assistant due to the complexity of surgery for patient positioning, draping, exposure, retraction, closure of wound and application of dressing. PLAN: The patient can weight-bear as tolerated on the operative extremity. DVT prophylaxis with aspirin 81 mg twice a day based on preoperative risk stratification. Physical therapy for gait training. Leave surgical dressing in place. Internal medicine for perioperative medical management.
[2023-07-02] MEDS: HYDROmorphone 0.5 MG/0.5 ML SYRINGE IVP ONE ×2 (16:14→16:33)
[2023-07-02] MEDS: ASPIRIN 81 MG PO SCH (20:26)
[2023-07-02] MEDS: SENNOSIDES-DOCUSATE SODIUM 1 EACH TAB PO SCH (20:26)
[2023-07-02] MEDS: HYDROcodone/APAP 10-325MG 1 EACH TAB PO PRN (20:27)
[2023-07-03 03:14] VITALS: TEMP 97.7
--- NOTE | 2023-07-03 08:02 | P.DS ---
Providers Date of admission: 07/02/2023 Attending physician: Andrei Mauricio Consults: 07/02/23 15:55 Consult Physician Routine Consulting Provider: Hilario Nicolas Jr Consult Reason/Comments: post op medical management Do you want consulting provider notified?: Yes Primary care physician: Hilario Nicolas [facility] Course: The patient is a very pleasant 68-year-old female who is admitted under my care yesterday after undergoing an uncomplicated right total hip replacement. Following surgery she was transferred to the orthopedic floor. She received 2 doses of postoperative antibiotics. She was transitioned from IV to oral pain medications. I saw the patient postoperative day #1 and she was doing well. She had minimal pain in her right hip. She started up to ambulate several noe es. Her dressing was intact. Her thigh was soft and compressible. Femoral and sciatic nerve function were intact. She worked with physical therapy and did well. Internal medicine was consulted for perioperative medical management. She did well and was ultimately discharged home. Plan - Discharge Summary Discharge Rx Participant: No New Discharge Prescriptions: New HYDROcodone/APAP 5-325MG [[place] 5-325] 1 - 2 tab PO Q6HR PRN #32 tab PRN Reason: Pain Aspirin 81 mg PO BID #60 tab Docusate [Colace] 100 mg PO BID #30 capsule Diclofenac Sodium [Voltaren] 75 mg PO BID #60 tab Omeprazole 40 mg PO DAILY #30 cap No Action Topiramate 100 mg PO BID hydroCHLOROthiazide [Hydrochlorothiazide] 12.5 mg PO DAILY Multivitamins, Thera [Multivitamin (formulary)] 1 tab PO DAILY Sodium Bicarbonate Tab 650 mg PO DAILY traMADol HCl [Ultram] 50 mg PO Q6HR PRN PRN Reason: Pain amLODIPine [Norvasc] 2.5 mg PO DAILY Potassium Gluconate 99 mg PO DAILY Aspirin/Acetaminophen/Caffeine [Excedrin Extra Strength Caplet] 1 each PO DIRECTED PRN PRN Reason: Pain Discharge Medication List Topiramate 100 mg PO BID 08/29/15 [History] hydroCHLOROthiazide [Hydrochlorothiazide] 12.5 mg PO DAILY 08/29/15 [History] Multivitamins, Thera [Multivitamin (formulary)] 1 tab PO DAILY 01/01/21 [History] Aspirin/Acetaminophen/Caffeine [Excedrin Extra Strength Caplet] 1 each PO DIRECTED PRN 06/26/23 [History] Potassium Gluconate 99 mg PO DAILY 06/26/23 [History] Sodium Bicarbonate Tab 650 mg PO DAILY 06/26/23 [History] amLODIPine [Norvasc] 2.5 mg PO DAILY 06/26/23 [History] traMADol HCl [Ultram] 50 mg PO Q6HR PRN 06/26/23 [History] Aspirin 81 mg PO BID #60 tab 07/02/23 [Rx] Diclofenac Sodium [Voltaren] 75 mg PO BID #60 tab 07/02/23 [Rx] Docusate [Colace] 100 mg PO BID #30 capsule 07/02/23 [Rx] HYDROcodone/APAP 5-325MG [[place] 5-325] 1 - 2 tab PO Q6HR PRN #32 tab 07/02/23 [Rx] Omeprazole 40 mg PO DAILY #30 cap 07/02/23 [Rx] Follow up Appointment(s)/Referral(s): Andrei Mauricio MD [Medical Doctor] - 2 Weeks Activity/Diet/Wound Care/Special Instructions: 1. Weight-bear as tolerated on your operative extremity unless instructed otherwise. Use a walker or other assistive device to ambulate. 2. Leave surgical dressing in place. If your dressing becomes saturated with blood, there is drainage, or the dressing becomes loose please contact the office. 3. It is okay to shower with your surgical dressing, but do not submerge in water (no hot tubs, bath's, swimming etc.) 4. Make sure to take her blood clot prevention medication as prescribed (aspirin, Eliquis, Xarelto, and Plavix are commonly prescribed medications for blood clot prevention) 5. While taking [place] or Percocet for pain make sure you're taking a stool softener (Colace) and drink lots of water. 6. Keep all follow-up appointments as scheduled. You will usually be seen in 1-2 weeks following surgery. 7. Please contact the office with any questions or concerns [phone] Discharge Disposition: HOME WITH HOME HEALTH SERVICES
[2023-07-03 08:18] VITALS: BP 104/70; PULSE 72; RESP 18
[2023-07-03] MEDS: FAMOTIDINE 20 MG TAB PO SCH (08:29)
[2023-07-03] MEDS: MULTIVITAMINS, THERA 1 EACH TAB PO SCH (08:29)
[2023-07-03 08:30] LABS: Basophils # (A) 0.02 X 10*3/uL (0.00-0.10); Basophils % (A) 0.2 %; Eosinophils # (A) 0.01 X 10*3/uL (0.04-0.35); Eosinophils % (A) 0.1 %; HCT 33.2 % (37.2-46.3); HGB 10.9 g/dL (12.0-15.0); Lymphocytes # (A) 1.49 X 10*3/uL (0.90-5.00); Lymphocytes % (A) 12.3 %; MCH 29.7 pg (27.0-32.0); MCHC 32.8 g/dL (32.0-37.0); MCV 90.5 FL (80.0-97.0); Monocytes # (A) 0.83 X 10*3/uL (0.20-1.00); Monocytes % (A) 6.8 %; NRBC Per 100 WBC 0 X 10*3/uL (0.00-0.01); Neutrophils # (A) 9.75 X 10*3/uL (1.80-7.70); Neutrophils % (A) 80.3 %; Platelet Count 261 X 10*3/uL (140-440); RBC 3.67 X 10*6/uL (4.10-5.20); RDW 12.8 % (11.5-14.5); WBC 12.14 X 10*3/uL (4.50-10.00)
--- NOTE | 2023-07-03 09:51 | P.CONS ---
History of Present Illness - Reason for Consult Medical management of hypertension - History of Present Illness Pallavi is a 68-year-old female well-known to my partner. She underwent a right total hip arthroplasty on Jul 02 2023 due to severe right hip osteoarthritis. She has a history of migraine, hypertension and chronic kidney disease stage IIIa. She is resting comfortably in the hospital. She denies any chest pains pressure shortness of breath nausea or vomiting today. She is tolerating regular diet. Review of Systems All systems: negative Past Medical History Past Medical History: Cancer, Hypertension, Musculoskeletal Disorder, Osteoarthritis (OA), Renal Disease Additional Past Medical History / Comment(s): BREAST CA 2002, "SIMPLE" CYST RT KIDNEY-followed by urology, stage 3A kidney disease History of Any Multi-Drug Resistant Organisms: None Reported Past Surgical History: Appendectomy, Breast Surgery, Cholecystectomy, Orthopedic Surgery, Tonsillectomy Additional Past Surgical History / Comment(s): LUMPECTOMY RT BREAST; LT BREAST BX. ORIF LLL. ANJUM bunionectomy Past Anesthesia/Blood Transfusion Reactions: No Reported Reaction Additional Past Anesthesia/Blood Transfusion Reaction / Comm: no hx. blood transfusion Past Psychological History: No Psychological Hx Reported Smoking Status: Former smoker Past Alcohol Use History: Occasional Additional Past Alcohol Use History / Comment(s): SMOKED 1 1/2 YEARS, QUIT 1977 Past Drug Use History: None Reported - Past Family History Mother Family Medical History: No Reported History Medications and Allergies Home Medications Medication Instructions Recorded Confirmed Type Topiramate 100 mg PO BID 08/29/15 06/26/23 History hydroCHLOROthiazide 12.5 mg PO DAILY 08/29/15 06/26/23 History [Hydrochlorothiazide] Multivitamins, Thera [Multivitamin 1 tab PO DAILY 01/01/21 06/26/23 History (formulary)] Aspirin/Acetaminophen/Caffeine 1 each PO DIRECTED PRN 06/26/23 06/26/23 History [Excedrin Extra Strength Caplet] Potassium Gluconate 99 mg PO DAILY 06/26/23 06/26/23 History Sodium Bicarbonate Tab 650 mg PO DAILY 06/26/23 06/26/23 History amLODIPine [Norvasc] 2.5 mg PO DAILY 06/26/23 06/26/23 History Aspirin 81 mg PO BID #60 tab 07/02/23 Rx Diclofenac Sodium [Voltaren] 75 mg PO BID #60 tab 07/02/23 Rx Docusate [Colace] 100 mg PO BID #30 capsule 07/02/23 Rx HYDROcodone/APAP 5-325MG [[place] 1 - 2 tab PO Q6HR PRN #32 tab 07/02/23 Rx 5-325] Omeprazole 40 mg PO DAILY #30 cap 07/02/23 Rx Acetaminophen Tab [Tylenol] 650 mg PO Q4HR PRN tab 07/03/23 Rx Sennosides-Docusate Sodium 2 each PO HS tab 07/03/23 Rx [Senokot-S] Allergies Allergy/AdvReac Type Severity Reaction Status Date / Time cefprozil [From Cefzil] Allergy Swelling Verified 07/02/23 11:44 ciprofloxacin [From Cipro] Allergy muscle Verified 07/02/23 11:44 tightness in legs sulfamethoxazole Allergy Unknown Verified 07/02/23 11:44 [From Bactrim] trimethoprim [From Bactrim] Allergy Unknown Verified 07/02/23 11:44 Physical Exam Vitals: Vital Signs Temp Pulse Pulse Resp BP Pulse Ox 07/03/23 07:32 97.7 F 72 18 104/70 94 L 07/03/23 01:06 97.7 F 64 16 105/68 97 07/02/23 20:54 99.2 F 81 109/62 97 07/02/23 20:07 73 112/59 95 07/02/23 19:52 89 106/67 95 07/02/23 19:44 97.5 F L 07/02/23 19:37 76 111/73 96 07/02/23 19:22 91 121/60 98 07/02/23 19:07 89 124/69 97 07/02/23 18:52 60 116/67 99 07/02/23 18:37 78 115/67 99 07/02/23 18:06 76 126/81 98 07/02/23 17:53 66 117/66 97 07/02/23 17:52 66 117/66 97 07/02/23 17:38 57 L 16 104/56 95 07/02/23 17:08 61 16 92/54 96 07/02/23 16:53 55 L 20 101/56 96 07/02/23 16:37 55 L 20 111/52 97 07/02/23 16:21 56 L 16 109/55 93 L 07/02/23 16:06 63 16 122/57 97 07/02/23 15:51 97.0 F L 83 16 137/61 97 07/02/23 12:25 77 16 140/75 94 L 07/02/23 11:57 97.0 F L 83 16 148/85 94 L Intake and Output 07/02/23 07/03/23 07/03/23 22:59 06:59 14:59 Intake Total 800 Output Total 200 Balance 600 Intake: IV 800 Output: Estimated Blood Loss 200 Other: Voiding Method Diaper Toilet # Voids 1 1 Weight 74.5 kg GENERAL: Well-appearing, well-nourished and in no acute distress. HEAD: Atraumatic, normocephalic. EYES: Pupils equal round and reactive to light, extraocular movements intact, sclera anicteric, conjunctiva are normal. ENT:nares patent, oropharynx clear without exudates. Moist mucous membranes. NECK: Normal range of motion, supple without lymphadenopathy or JVD, no thyromegaly LUNGS: Breath sounds clear to auscultation bilaterally and equal. No wheezes rales or rhonchi. HEART: Regular rate and rhythm without murmurs, rubs or gallops.S1S2 Normal ABDOMEN: Soft, nontender, normoactive bowel sounds. No guarding, no rebound. No masses appreciated. EXTREMITIES: Using walker for ambulation, +1 pedal edema, normal pulses normal. NEUROLOGICAL: Cranial nerves II through XII grossly intact. Normal speech, . PSYCH: Normal mood, normal affect. SKIN: Warm, Dry, normal turgor, no rashes or lesions noted. Results CBC & Chem 7: 07/03/23 06:13 Labs: Abnormal Lab Results - Last 24 Hours (Table) 07/03/23 Range/Units 06:13 WBC 12.14 H (4.50-10.00) X 10*3/uL RBC 3.67 L (4.10-5.20) X 10*6/uL Hgb 10.9 L (12.0-15.0) g/dL Hct 33.2 L (37.2-46.3) % Neutrophils # 9.75 H (1.80-7.70) X 10*3/uL Eosinophils # 0.01 L (0.04-0.35) X 10*3/uL Assessment and Plan (1) S/P total right hip arthroplasty Current Visit: Yes Status: Acute Code(s): Z96.641 - PRESENCE OF RIGHT ARTIFICIAL HIP JOINT SNOMED Code(s): 814595731655 (2) Osteoarthritis of right hip Current Visit: Yes Status: Acute Code(s): M16.11 - UNILATERAL PRIMARY OSTEOARTHRITIS, RIGHT HIP SNOMED Code(s): 584009838530740 (3) Essential (primary) hypertension Current Visit: Yes Status: Acute Code(s): I10 - ESSENTIAL (PRIMARY) HYPERTENSION SNOMED Code(s): 92400105 (4) CKD (chronic kidney disease) stage 3, GFR 30-59 ml/min Current Visit: Yes Status: Acute Code(s): N18.30 - CHRONIC KIDNEY DISEASE, STAGE 3 UNSPECIFIED SNOMED Code(s): 041841558 (5) Kidney cyst, acquired Current Visit: Yes Status: Acute Code(s): N28.1 - CYST OF KIDNEY, ACQUIRED SNOMED Code(s): 260462522 (6) H/O malignant neoplasm of breast Current Visit: Yes Status: Acute Code(s): Z85.3 - PERSONAL HISTORY OF MALIGNANT NEOPLASM OF BREAST SNOMED Code(s): 225398023 Plan: Patient is doing well and vitals are stable, pain is controlled, she will most likely be discharged later today. She is already resumed her hypertensive medications. Will follow with you if she needs to stay longer otherwise we will have her follow-up in the office in the next 1 to 2 weeks, thank you much for this consultation
== END 2023-07-03 11:44 | disposition home health service (06) ==
LOC: OR 11:20 → 4SSUR 15:42 → OR 07-03 11:44
PROVIDERS: ATTEND Orthopaedic Surgery
DX: M16.11 Unilateral primary osteoarthritis, right hip (principal); G89.18 Other acute postprocedural pain; I12.9 Hypertensive chronic kidney disease with stage 1 through stage 4 chronic kidney disease, or unspecified chronic kidney disease; N18.31 Chronic kidney disease, stage 3a; K21.9 Gastro-esophageal reflux disease without esophagitis; F10.90 Alcohol use, unspecified, uncomplicated; Z79.82 Long term (current) use of aspirin; Z79.899 Other long term (current) drug therapy; Z85.3 Personal history of malignant neoplasm of breast; Z87.891 Personal history of nicotine dependence; Z88.1 Allergy status to other antibiotic agents; Z88.2 Allergy status to sulfonamides; Z90.49 Acquired absence of other specified parts of digestive tract; Z79.1 Long term (current) use of non-steroidal anti-inflammatories (NSAID)
CPT/HCPCS: 97161; 97535; 97166; 64447; 85025; 73501; 27130; C1776; J2250; J0330; J1100 ×2; J2710; J0690 ×2; J2405; J2001; J3010; J3490; J1170 ×2; J2795; J1885; J2704; J2371

== ENCOUNTER → 2023-09-24 | Outpatient (CLI) | payer MEDICARE | END | disposition home or self-care (01) | LOC: LABWHC1 08:53 | PROVIDERS: ATTEND Internal Medicine | DX: N39.0 Urinary tract infection, site not specified (principal); N18.31 Chronic kidney disease, stage 3a; D63.1 Anemia in chronic kidney disease; R80.9 Proteinuria, unspecified | CPT/HCPCS: 36415; 80048; 82043; 82570; 83735; 84100; 84133; 84165; 85027 ==

== ENCOUNTER → 2024-05-18 | Outpatient (CLI) | payer MEDICARE ==
--- NOTE | 2024-05-18 12:16 | MM ---
Reason for Exam: Hx of breast cancer, conservation therapy. Last mammogram was performed 1 year(s) and 2 month(s) ago. Patient History: Menarche at age 10. First Full-Term at age 16. Postmenopausal. Breast cancer, right, age 47. Estrogen for 3 months from age 47 until age 47. Hormonal Contraceptives, starting at age 18 for 6 years. Tamoxifen for 4 years, 7 months, until age 53. Lumpectomy on the Right side. 2002, Excisional Biopsy on the Right side. 2002, Excisional Biopsy on the Left side. Prior Study Comparison: 02/17/2017 Bilateral Screening Mammogram, [facility]. 06/10/2018 Screening Mammogram, [facility]. 12/09/2019 Bilateral Screening Mammogram, [facility]. 02/09/2021 Bilateral Screening Mammogram, [facility]. 03/12/2022 Bilateral MG 3D screening mammo w/cad, [facility]. 03/25/2023 Bilateral MG 3D screening mammo w/cad, [facility]. Tissue Density: There are scattered areas of fibroglandular density. Findings: Analyzed By CAD. Postsurgical and posttreatment changes right breast. There is no suspicious group of microcalcifications or new suspicious mass in either breast. Overall Assessment: Benign, BI-RAD 2 Management: Screening Mammogram of both breasts in 1 year. Patient should continue monthly self-breast exams. A clinical breast exam by your physician is recommended on an annual basis. This exam should not preclude additional follow-up of suspicious palpable abnormalities. [facility], , 05/18/2024 12:13 PM. Electronically signed and approved by: Nate Valdez M.D. Radiologist
== END | disposition home or self-care (01) ==
LOC: RADMAMWWP 08:36
PROVIDERS: ATTEND Family Medicine
DX: Z12.31 Encounter for screening mammogram for malignant neoplasm of breast (principal); R92.323 Mammographic fibroglandular density, bilateral breasts; Z78.0 Asymptomatic menopausal state; Z85.3 Personal history of malignant neoplasm of breast; Z92.0 Personal history of contraception
CPT/HCPCS: 77063; 77067